=== PATIENT | female | born 1960 | race Caucasian/White ===

== ENCOUNTER → 2016-11-09 | Outpatient (CLI) | payer OTHER ==
[2016-11-09 10:13] LABS: BUN/CREATININE RATIO 18 (0-10)
[2016-11-09 10:32] LABS: HEMOGLOBIN 13.5 gm/dl (12.3-15.3); RED BLOOD COUNT 4.5 M/UL (4.00-5.10); WHITE BLOOD COUNT 5.4 K/UL (4.5-11.0)
== END ==
LOC: LAB 09:03
PROVIDERS: Nurse Practitioner Family
DX: E78.5 Hyperlipidemia, unspecified (principal); I10 Essential (primary) hypertension; R53.83 Other fatigue; R31.9 Hematuria, unspecified; E55.9 Vitamin D deficiency, unspecified
CPT/HCPCS: 36415; 80053; 80061; 82607; 84439; 84443; 85027

== ENCOUNTER → 2020-08-25 | Outpatient (CLI) | payer OTHER ==
[2020-08-25 09:54] LABS: HEMOGLOBIN 13.5 gm/dl (12.3-15.3); RED BLOOD COUNT 4.51 M/UL (4.00-5.10); WHITE BLOOD COUNT 4.9 K/UL (4.5-11.0)
[2020-08-25 10:22] LABS: BUN/CREATININE RATIO 19 (0-10)
== END ==
LOC: LAB 09:26
PROVIDERS: Nurse Practitioner Family
DX: Z00.00 Encounter for general adult medical examination without abnormal findings (principal); R73.9 Hyperglycemia, unspecified; E78.5 Hyperlipidemia, unspecified; D50.9 Iron deficiency anemia, unspecified; M54.2 Cervicalgia; M25.50 Pain in unspecified joint; M79.7 Fibromyalgia; R53.83 Other fatigue; E53.8 Deficiency of other specified B group vitamins
CPT/HCPCS: 36415; 80053; 80061; 82607; 84439; 84443; 85025

== ENCOUNTER → 2020-08-28 | Outpatient (CLI) | payer OTHER | LOC: KOH-I 09:50 | DX: R15.9 Full incontinence of feces (principal); M54.16 Radiculopathy, lumbar region; M51.26 Other intervertebral disc displacement, lumbar region | CPT/HCPCS: 72040; 72070; 72100; 72148; 73522 ==

== ENCOUNTER → 2020-12-16 | Outpatient (CLI) | payer OTHER | LOC: LAB 08:37 | DX: E03.9 Hypothyroidism, unspecified (principal); R05 Cough; R91.8 Other nonspecific abnormal finding of lung field | CPT/HCPCS: 36415; 71046; 84439; 84443 ==

== ENCOUNTER → 2020-12-30 | Outpatient (CLI) | payer OTHER | LOC: HEART 5 14:24 | DX: R06.02 Shortness of breath (principal) | CPT/HCPCS: 94010 ==

== ENCOUNTER → 2021-01-07 | Outpatient (CLI) | payer OTHER | LOC: KOH-I 09:11 | DX: R93.89 Abnormal findings on diagnostic imaging of other specified body structures (principal); R05 Cough; R06.02 Shortness of breath; J84.10 Pulmonary fibrosis, unspecified | CPT/HCPCS: 71250 ==

== ENCOUNTER → 2021-01-21 | Outpatient (CLI) | payer OTHER | LOC: LAB 07:31 | DX: E03.9 Hypothyroidism, unspecified (principal) | CPT/HCPCS: 36415; 84439; 84443 ==

== ENCOUNTER → 2021-03-21 | Outpatient (CLI) | payer OTHER ==
[2021-03-21 09:52] LABS: RED BLOOD COUNT 4.35 M/UL (4.00-5.10); WHITE BLOOD COUNT 4.9 K/UL (4.5-11.0)
[2021-03-21 10:16] LABS: BUN/CREATININE RATIO 18 (0-10)
[2021-03-22 07:10] LABS: VITAMIN D, 25-HYDROXY 35.2 ng/mL (30.0-100.0)
[2021-03-22 08:10] LABS: ANTISTREPTOLYSIN O AB 82.6 IU/mL (0.0-200.0); RHEUMATOID ARTHRITIS FACTOR <10.0 IU/mL (0.0-13.9)
== END ==
LOC: LAB 08:52
PROVIDERS: Nurse Practitioner Family
DX: Z00.00 Encounter for general adult medical examination without abnormal findings (principal); M25.50 Pain in unspecified joint; M54.12 Radiculopathy, cervical region; K59.00 Constipation, unspecified; F32.9 Major depressive disorder, single episode, unspecified; M79.7 Fibromyalgia; E78.5 Hyperlipidemia, unspecified; G43.909 Migraine, unspecified, not intractable, without status migrainosus; E53.8 Deficiency of other specified B group vitamins; E55.9 Vitamin D deficiency, unspecified
CPT/HCPCS: 80053; 80061; 82607; 84439; 84443; 84550; 85025; 85652; 86038; 86060; 86140; 86141; 86431

== ENCOUNTER 2021-08-15 09:01 | Emergency (ER) | payer OTHER ==
[2021-08-15 09:48] LABS: HEMOGLOBIN 13.6 gm/dl (12.3-15.3); RED BLOOD COUNT 4.66 M/UL (4.00-5.10); WHITE BLOOD COUNT 11.8 K/UL (4.5-11.0)
[2021-08-15 10:22] LABS: BUN/CREATININE RATIO 23 (0-10)
[2021-08-15] MEDS ORDERED: ZITHROMAX250 MG PO (12:45)
[2021-08-15] MEDS ORDERED: AUGMENTIN 875-1 EACH PO (12:45)
== END 2021-08-15 13:05 | disposition home or self-care (01) ==
LOC: ER1 09:01
PROVIDERS: Nurse Practitioner
DX: I49.3 Ventricular premature depolarization (principal); J18.9 Pneumonia, unspecified organism; Z88.1 Allergy status to other antibiotic agents; K21.9 Gastro-esophageal reflux disease without esophagitis
CPT/HCPCS: 71045; 80053; 81001; 82550; 82553; 83874; 84484; 85025; 93005; 96374; 99285; J0696

== ENCOUNTER → 2021-09-18 | Outpatient (CLI) | payer OTHER ==
[~2021-09-18] MED LIST: AUGMENTIN 875-1 EACH PO; ZITHROMAX250 MG PO
[2021-09-18 09:34] LABS: HEMOGLOBIN 14.4 gm/dl (12.3-15.3); RED BLOOD COUNT 4.88 M/UL (4.00-5.10); WHITE BLOOD COUNT 8.5 K/UL (4.5-11.0)
[2021-09-18 09:55] LABS: BUN/CREATININE RATIO 24 (0-10)
[2021-09-19 10:14] LABS: CREATININE, URINE 282.6 mg/dL (Not Estab.)
== END ==
LOC: LAB 08:44
PROVIDERS: Nurse Practitioner Family
DX: Z01.84 Encounter for antibody response examination (principal); J18.9 Pneumonia, unspecified organism; R73.9 Hyperglycemia, unspecified; M25.50 Pain in unspecified joint; M54.12 Radiculopathy, cervical region; F32.A Depression, unspecified; K59.00 Constipation, unspecified; E78.5 Hyperlipidemia, unspecified; E03.9 Hypothyroidism, unspecified; E53.8 Deficiency of other specified B group vitamins; E55.9 Vitamin D deficiency, unspecified; Z20.822 Contact with and (suspected) exposure to COVID-19
CPT/HCPCS: 36415; 71046; 80053; 80061; 82043; 82570; 82607; 83036; 84439; 84443; 85025

== ENCOUNTER 2021-10-04 01:45 | Emergency (ER) | payer OTHER ==
[2021-10-04 03:04] LABS: HEMOGLOBIN 15.2 gm/dl (12.3-15.3); RED BLOOD COUNT 5.17 M/UL (4.00-5.10); WHITE BLOOD COUNT 13.6 K/UL (4.5-11.0)
[2021-10-04 03:23] LABS: BUN/CREATININE RATIO 32 (0-10)
[2021-10-04] MEDS ORDERED: CARAFATE 1 GM TA1 GM PO (06:04)
[2021-10-04] MEDS ORDERED: ZOFRAN ODT 4 MG4 MG SL (06:04)
== END 2021-10-04 06:30 | disposition home or self-care (01) ==
LOC: ER1 01:45
PROVIDERS: Student in an Organized Health Care Education/Training Program
DX: R19.7 Diarrhea, unspecified (principal); R11.10 Vomiting, unspecified; K21.9 Gastro-esophageal reflux disease without esophagitis; Z88.1 Allergy status to other antibiotic agents; Z20.822 Contact with and (suspected) exposure to COVID-19
CPT/HCPCS: 0240U; 80053; 81001; 85025; 87449; 96374; 99284; J2405; J7030; Q9967

== ENCOUNTER → 2022-01-15 | Outpatient (CLI) | payer OTHER ==
[~2022-01-15] MED LIST changes: +CARAFATE 1 GM TA1 GM PO; +ZOFRAN ODT 4 MG4 MG SL
[2022-01-15 09:19] LABS: HEMOGLOBIN 13.7 gm/dl (12.3-15.3); RED BLOOD COUNT 4.47 M/UL (4.00-5.10); WHITE BLOOD COUNT 6.6 K/UL (4.5-11.0)
[2022-01-15 09:56] LABS: BUN/CREATININE RATIO 26 (0-10)
[2022-01-16 10:13] LABS: CREATININE, URINE 213.8 mg/dL (Not Estab.)
== END ==
LOC: LAB 08:33
PROVIDERS: Nurse Practitioner Family
DX: E78.5 Hyperlipidemia, unspecified (principal); R73.9 Hyperglycemia, unspecified; M25.50 Pain in unspecified joint; M54.12 Radiculopathy, cervical region; M79.7 Fibromyalgia; K21.9 Gastro-esophageal reflux disease without esophagitis; G43.909 Migraine, unspecified, not intractable, without status migrainosus; R53.83 Other fatigue; E53.8 Deficiency of other specified B group vitamins; E55.9 Vitamin D deficiency, unspecified
CPT/HCPCS: 36415; 80053; 80061; 81001; 82043; 82570; 82607; 83036; 84439; 84443; 85025

== ENCOUNTER → 2022-01-22 | Outpatient (CLI) | payer OTHER | LOC: LAB 11:13 | DX: Z20.822 Contact with and (suspected) exposure to COVID-19 (principal) | CPT/HCPCS: U0003 ==

== ENCOUNTER → 2022-02-25 | Outpatient (CLI) | payer OTHER | LOC: EXRD 10:38 | DX: M54.9 Dorsalgia, unspecified (principal); R06.81 Apnea, not elsewhere classified | CPT/HCPCS: 71046 ==